=== PATIENT | male | born 1955 | race Caucasian/White ===

== ENCOUNTER → 2020-05-04 | Outpatient (CLI) | payer OTHER, MEDICARE ==
[~2020-05-04] VITALS: Ht 182.9 cm; Wt 108.9 kg
[~2020-05-04] MED LIST: CELEBREX 200 M200 M1 PO; HYDROCODON-ACE1 EAC5 PO; LIPITOR10 MG PO; SERTRALINE HCL100 MG PO; TRAMADOL 50 MG50 MG PO; TRAZODONE HCL100 MG PO; ZESTRIL5 MG PO
[2020-05-04 09:27] VITALS: BP 131/84
--- NOTE | 2020-05-04 10:05 | NUR ---
Pain Clinic Assessment: 1. History of Osteoarthritis: Not Applicable History of Rheumatoid Arthritis: Not Applicable 2. Height: 6 ft. 44 in. 182.9 cm. Weight: 240.0 lb. oz. 108.864 kg. Patient's BMI: 32.5 3. Vital Signs: BP: 131/84 Pulse: 77 Resp: 16 Temp: 02 Sat: 98 ECG Mon: 4. Pain Intensity: 7 5. Fall Risk: Dizziness: N Needs help standing or walking: N Fallen in the last 3 months: N Fall risk comments: 6. Patient on Blood Thinner: None 7. History of Hypertension: Y 8. Opioid Therapy greater than 6 weeks: N Opiate Contract Signed: 9. Risk Assessment Tool Provided: 10. Functional Assessment Tool: 1-low 11. Recreational Drug Use: Never Drug Type: Tobacco Use: Never Smoker Tobacco Type: Amount or Packs/day: How Many Years: Alcohol Use: Yes Frequency: Weekly Quant: 1
--- NOTE | 2020-05-11 09:11 | HPC ---
[facility] [address] [place] [address] PAIN MANAGEMENT CONSULTATION Name: GELY WATSON Room #: REG MERON GamezAna#: [id number] Admission: 05/04/20 Attend Phys: Sergio Rojas MD Discharge: Date of : 51 Report #: [id number] CC: Physician staff Sergio Vo MD DATE OF SERVICE: 05/04/2020 CHIEF COMPLAINT: Chronic low back pain, increasing in severity, multiple joint arthropathy. I am seeing the patient today at the request of Dr. Vo. The referral actually came through his 's sister Dr. Stella Dodge. The patient is a bit of a local legend. 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 I was 2 years younger than him in [place], [place] and remember his career well. 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 He has had multiple operations dating back to 1978, but has no artificial joints. He is here today to focus on his back. It is his most limiting of his injuries. He complains of a constant pain in the lower back and occasionally will radiate into either leg. He is frequently in need of changing positions because of his prolonged standing or sitting causes increased pain. He is unable to lift heavy objects. If he is walking, he often times has to look for some place to rest and sit for a short while before he can get up and go again. He describes it as a constant pain shooting and aching, scores it as a 7/10. He was seen by Dr. Causey about 6 years ago and received a couple of injections. He is not sure which type, but does not remember them to be particularly helpful or sustained in their response. MEDICATIONS: Lisinopril, atorvastatin, sertraline, trazodone, Celebrex 200 mg b.i.d. He had some short trials with tramadol, but has not found them effective. He has not had a consultation regarding the use of stronger pain medications and has not taken hydrocodone or oxycodone for severe episodes of pain. ALLERGIES: SHELLFISH. PAST MEDICAL HISTORY: Hypertension and the multiple joint arthropathies described above. PAST SURGICAL HISTORY: Knee surgeries in 1978, 1980, 1981, 1984. He had surgery on his elbow in 1983. He had an anterior cervical diskectomy and fusion in 1988, although he cannot remember which level. SOCIAL HISTORY: After football, he went on to work for several years and retired 2 years ago. He is and lives in [place] now. His who was with him for today's visit reports that because of his constant pain issues, he is having difficulty enjoying his nursing home. He is trying to play golf a couple of times a week, but it is painful. Impacted pain score is 47/70. He scores high for sleep interference, mood, and enjoyment of life 8/10. Pain clearly is playing a significant role in impact. He completed an opioid risk tool, his score was 1. REVIEW OF SYSTEMS: Fatigue, weakness, insomnia. PHYSICAL EXAMINATION: GENERAL: A pleasant gentleman wearing a mask due to COVID restrictions. VITAL SIGNS: His blood pressure 131/84, heart rate 77, respirations 16, O2 sat 98 on room air. His BMI is 29.2. He can move independently from sitting to standing position, but his gait is antalgic. He has difficulty standing straight. HEENT: Normal. NECK: Supple, more so than I anticipated. He does have a little bit of difficulty with lateral tilt to the left. CHEST: Clear to auscultation. CARDIAC: Rhythm is regular. No audible murmur. ABDOMEN: Soft. 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 Crepitus is noted. Examination of the spine reveals restricted range of motion in extension, which exacerbates pain. Some radiating pain into the hips. Tenderness along the lumbosacral segment bilaterally extending up to the mid lumbar region. Sacroiliac joints are fine. No tenderness there. Good range of motion of the hips. Both knees have good range of motion, but are tender. X-rays available none at this time. We are requesting them and I will review. IMPRESSION: 1. Chronic intractable back pain, likely significant spondylosis. He has some mild radicular symptoms as well. He has symptoms consistent with neurogenic claudication. We will review for central spinal stenosis. 2. Insomnia in part related to chronic pain and depressed mood due to restrictions in activity. This is situational and pain induced. 3. Hypertension. 4. Status post ACDF. RECOMMENDATIONS: 1. His back may be responsive to injection therapies. We discussed both an epidural injection as a first step due to its simplicity and its widespread use and it may be very helpful for both axial back pain and neurogenic claudication symptoms. He may benefit from facet treatments, but this would require diagnostic treatments as well as radiofrequency ablation. I am not ready to go to that step yet from an interventional standpoint. 2. Regular exercise is important and we discussed the importance of remaining active, particularly for spondylitic pain. Inactivity tends to worsen his pain and I impressed upon him the importance of exercise. Stretching program, stationary bicycle and nonimpact exercise would be my recommendation. I would prefer forward facing seated bicycle rather than a recombinant due to facet mechanics. We did discuss the use of medication and the treatment of chronic intractable pain for Medicare and older. Particularly someone like the patient, who has chronic pain from multiple injuries and years in the [facility], it is my opinion that this is a reasonable place for the use of opioid therapy, chronic at reasonable doses overseeing carefully his medications. We discussed the opioid crisis and addictions. We, however, have significant experience in treating chronic pain patients successfully with reasonable doses of opioids over a decade. Improving his quality of life and ability to enjoy time in his nursing home would certainly be reasonable goals. I have given him hydrocodone 10/325, #20 tablets to use as a trial for severe pain episodes while we gather x-rays and bring him back to the clinic for an epidural injection in the next week or so. Followup visit planned for an epidural injection. <ELECTRONICALLY SIGNED> By: Sergio Rojas MD 05/11/20 0911 [id number] Sergio Rojas MD /nt
== END ==
LOC: PAIN 06:47
PROVIDERS: ATTEND Anesthesiology Pain Medicine
DX: M54.5 Low back pain (principal); G89.29 Other chronic pain; G47.00 Insomnia, unspecified; I10 Essential (primary) hypertension; Z98.1 Arthrodesis status; Z88.8 Allergy status to other drugs, medicaments and biological substances; Z79.899 Other long term (current) drug therapy

== ENCOUNTER → 2020-05-11 | Outpatient (CLI) | payer OTHER, MEDICARE ==
[~2020-05-11] VITALS: Ht 190.5 cm; Wt 111.7 kg
[2020-05-11 09:52] VITALS: BP 144/88
--- NOTE | 2020-05-11 09:55 | NUR ---
Pain Clinic Assessment: 1. History of Osteoarthritis: LUMBAR SPINE History of Rheumatoid Arthritis: Not Applicable 2. Height: 6 ft. 3 in. 190.5 cm. Weight: 246.2 lb. oz. 111.676 kg. Patient's BMI: 30.8 3. Vital Signs: BP: 144/88 Pulse: 74 Resp: 18 Temp: 02 Sat: 97 ECG Mon: 4. Pain Intensity: 7 5. Fall Risk: Dizziness: N Needs help standing or walking: N Fallen in the last 3 months: N Fall risk comments: 6. Patient on Blood Thinner: None 7. History of Hypertension: Y 8. Opioid Therapy greater than 6 weeks: N Opiate Contract Signed: 9. Risk Assessment Tool Provided: 10. Functional Assessment Tool: 1-low 11. Recreational Drug Use: Never Drug Type: Tobacco Use: Never Smoker Tobacco Type: Amount or Packs/day: How Many Years: Alcohol Use: Yes Frequency: Quant:
== END | disposition home or self-care (01) ==
LOC: PAIN 07:02
PROVIDERS: ATTEND Anesthesiology Pain Medicine
DX: M54.16 Radiculopathy, lumbar region (principal); M48.061 Spinal stenosis, lumbar region without neurogenic claudication; G89.29 Other chronic pain; I10 Essential (primary) hypertension; Z98.890 Other specified postprocedural states; Z79.899 Other long term (current) drug therapy; Z79.891 Long term (current) use of opiate analgesic

== ENCOUNTER → 2020-07-06 | Outpatient (CLI) | payer OTHER, MEDICARE ==
[~2020-07-06] VITALS: Ht 190.5 cm; Wt 108.3 kg
[2020-07-06 10:12] VITALS: BP 154/97
--- NOTE | 2020-07-06 10:13 | NUR ---
Pain Clinic Assessment: 1. History of Osteoarthritis: LUMBAR SPINE History of Rheumatoid Arthritis: Not Applicable 2. Height: 6 ft. 3 in. 190.5 cm. Weight: 238.8 lb. oz. 108.319 kg. Patient's BMI: 29.8 3. Vital Signs: BP: 154/97 Pulse: 70 Resp: 18 Temp: 02 Sat: 96 ECG Mon: 4. Pain Intensity: 6 5. Fall Risk: Dizziness: N Needs help standing or walking: N Fallen in the last 3 months: N Fall risk comments: 6. Patient on Blood Thinner: None 7. History of Hypertension: Y 8. Opioid Therapy greater than 6 weeks: N Opiate Contract Signed: 9. Risk Assessment Tool Provided: 10. Functional Assessment Tool: 1-low 11. Recreational Drug Use: Never Drug Type: Tobacco Use: Never Smoker Tobacco Type: Amount or Packs/day: How Many Years: Alcohol Use: Yes Frequency: Special Occasions Quant: GLASS OF WINE OCCASIONALLY
== END | disposition home or self-care (01) ==
LOC: PAIN 06:58
PROVIDERS: ATTEND Anesthesiology Pain Medicine
DX: M54.16 Radiculopathy, lumbar region (principal); M48.061 Spinal stenosis, lumbar region without neurogenic claudication; M43.16 Spondylolisthesis, lumbar region; G89.29 Other chronic pain; I10 Essential (primary) hypertension; Z98.890 Other specified postprocedural states; Z79.899 Other long term (current) drug therapy; Z79.891 Long term (current) use of opiate analgesic; Z88.8 Allergy status to other drugs, medicaments and biological substances

== ENCOUNTER → 2020-12-28 | Outpatient (CLI) | payer OTHER, MEDICARE ==
[~2020-12-28] VITALS: Ht 190.5 cm; Wt 104.3 kg
[2020-12-28 09:18] VITALS: BP 133/84
--- NOTE | 2020-12-28 09:25 | NUR ---
Pain Clinic Assessment: 1. History of Osteoarthritis: LUMBAR SPINE History of Rheumatoid Arthritis: Not Applicable 2. Height: 6 ft. 3 in. 190.5 cm. Weight: 230.0 lb. oz. 104.328 kg. Patient's BMI: 28.7 3. Vital Signs: BP: 133/84 Pulse: 68 Resp: 14 Temp: 02 Sat: 98 ECG Mon: 4. Pain Intensity: 7 5. Fall Risk: Dizziness: N Needs help standing or walking: N Fallen in the last 3 months: N Fall risk comments: 6. Patient on Blood Thinner: None 7. History of Hypertension: Y 8. Opioid Therapy greater than 6 weeks: N Opiate Contract Signed: 9. Risk Assessment Tool Provided: 10. Functional Assessment Tool: 1-low 11. Recreational Drug Use: Never Drug Type: Tobacco Use: Never Smoker Tobacco Type: Amount or Packs/day: How Many Years: Alcohol Use: Yes Frequency: Daily Quant: 1
== END | disposition home or self-care (01) ==
LOC: PAIN 07:18
PROVIDERS: ATTEND Anesthesiology Pain Medicine
DX: M54.16 Radiculopathy, lumbar region (principal); M48.062 Spinal stenosis, lumbar region with neurogenic claudication; M43.16 Spondylolisthesis, lumbar region; M54.42 Lumbago with sciatica, left side; M54.41 Lumbago with sciatica, right side; Z98.890 Other specified postprocedural states; Z79.899 Other long term (current) drug therapy

== ENCOUNTER → 2021-04-22 | Outpatient (CLI) | payer OTHER, MEDICARE ==
[~2021-04-22] VITALS: Ht 190.5 cm; Wt 105.0 kg
[2021-04-22 09:16] VITALS: BP 152/89
--- NOTE | 2021-04-22 09:29 | NUR ---
Pain Clinic Assessment: 1. History of Osteoarthritis: LUMBAR SPINE History of Rheumatoid Arthritis: Not Applicable 2. Height: 6 ft. 3 in. 190.5 cm. Weight: 231.4 lb. oz. 104.963 kg. Patient's BMI: 28.9 3. Vital Signs: BP: 152/89 Pulse: 67 Resp: 14 Temp: 02 Sat: 98 ECG Mon: 4. Pain Intensity: 6-7 5. Fall Risk: Dizziness: N Needs help standing or walking: N Fallen in the last 3 months: N Fall risk comments: 6. Patient on Blood Thinner: None 7. History of Hypertension: Y 8. Opioid Therapy greater than 6 weeks: N Opiate Contract Signed: 9. Risk Assessment Tool Provided: 10. Functional Assessment Tool: 1-low 11. Recreational Drug Use: Never Drug Type: Tobacco Use: Never Smoker Tobacco Type: Amount or Packs/day: How Many Years: Alcohol Use: Yes Frequency: Quant:
== END ==
LOC: PAIN 06:49
PROVIDERS: ATTEND Anesthesiology Pain Medicine
DX: M54.16 Radiculopathy, lumbar region (principal); M48.061 Spinal stenosis, lumbar region without neurogenic claudication; G89.29 Other chronic pain; Z88.8 Allergy status to other drugs, medicaments and biological substances; Z79.899 Other long term (current) drug therapy

== ENCOUNTER → 2021-05-10 | Outpatient (CLI) | payer OTHER, MEDICARE ==
[~2021-05-10] VITALS: Ht 190.5 cm; Wt 105.0 kg
[2021-05-10 10:06] VITALS: BP 119/81
--- NOTE | 2021-05-10 10:15 | NUR ---
Pain Clinic Assessment: 1. History of Osteoarthritis: LUMBAR SPINE History of Rheumatoid Arthritis: Not Applicable 2. Height: 6 ft. 3 in. 190.5 cm. Weight: 231.4 lb. oz. 104.963 kg. Patient's BMI: 28.9 3. Vital Signs: BP: 119/81 Pulse: 73 Resp: 16 Temp: 02 Sat: 100 ECG Mon: 4. Pain Intensity: 6-7 5. Fall Risk: Dizziness: N Needs help standing or walking: N Fallen in the last 3 months: N Fall risk comments: 6. Patient on Blood Thinner: None 7. History of Hypertension: Y 8. Opioid Therapy greater than 6 weeks: N Opiate Contract Signed: 9. Risk Assessment Tool Provided: 10. Functional Assessment Tool: 1-low 11. Recreational Drug Use: Never Drug Type: Tobacco Use: Never Smoker Tobacco Type: Amount or Packs/day: How Many Years: Alcohol Use: Yes Frequency: Daily Quant: 1
== END | disposition home or self-care (01) ==
LOC: PAIN 05-08 10:28
PROVIDERS: ATTEND Anesthesiology Pain Medicine
DX: M54.16 Radiculopathy, lumbar region (principal); M43.16 Spondylolisthesis, lumbar region; G89.29 Other chronic pain; Z98.890 Other specified postprocedural states; Z79.899 Other long term (current) drug therapy

== ENCOUNTER → 2021-07-05 | Outpatient (CLI) | payer OTHER, MEDICARE ==
[~2021-07-05] VITALS: Ht 190.5 cm; Wt 106.8 kg
[2021-07-05 09:00] VITALS: BP 145/84
== END | disposition home or self-care (01) ==
LOC: PAIN 06:57
PROVIDERS: ATTEND Anesthesiology Pain Medicine
DX: M54.16 Radiculopathy, lumbar region (principal); G89.29 Other chronic pain; M43.16 Spondylolisthesis, lumbar region; I10 Essential (primary) hypertension; Z98.890 Other specified postprocedural states; Z79.899 Other long term (current) drug therapy